=== PATIENT | male | born 2000 | race African-American/Black ===

== ENCOUNTER 2022-03-29 12:03 | Emergency (ER) | payer SELFPAY ==
[~2022-03-29] VITALS: Ht 185.4 cm; Wt 73.0 kg
[2022-03-29] MEDS ORDERED: KETOROLAC 60MG/2ML VIAL IM ONE (12:45)
[2022-03-29 12:51] VITALS: BP 115/78
[2022-03-29] MEDS ORDERED: CYCL10TA7 MT (14:16)
[2022-03-29] MEDS ORDERED: IBUP-2029 MT (14:16)
== END 2022-03-29 14:25 | disposition home or self-care (01) ==
LOC: ER 12:03
DX: S30.0XXA Contusion of lower back and pelvis, initial encounter (principal); R00.1 Bradycardia, unspecified; V43.52XA Car driver injured in collision with other type car in traffic accident, initial encounter; Y93.89 Activity, other specified; Y92.411 Interstate highway as the place of occurrence of the external cause
CPT/HCPCS: 72100; 93005; 96372; 99283; J1885